=== PATIENT | female | born 1985 | race African-American/Black ===

== ENCOUNTER 2016-08-12 22:39 | Emergency (ER) | payer OTHER ==
[~2016-08-12] VITALS: Ht 167.6 cm; Wt 56.7 kg
[~2016-08-12 22:39] MED LIST: COUMADIN 5 MG TA5 M1 PO; ENOXAPARIN30 MG/0.1 SUBQ; NOHOMEMEDICATIONS; THERAFLU COL245.5 ML; ZPAK PO
[2016-08-12] MEDS ORDERED: DILAUDID 2 MG TA2 MG PO (23:00)
[2016-08-12] MEDS ORDERED: LYRICA 50 MG50 MG PO (23:00)
[2016-08-12] MEDS ORDERED: MS CONTIN15 MG PO (23:00)
[2016-08-12] MEDS ORDERED: DEXAMETHASONE4 MG PO (23:01)
== END 2016-08-12 23:48 | disposition home or self-care (01) ==
LOC: ER 22:39
DX: S82.001A Unspecified fracture of right patella, initial encounter for closed fracture (principal); F10.99 Alcohol use, unspecified with unspecified alcohol-induced disorder; Z85.831 Personal history of malignant neoplasm of soft tissue; W19.XXXA Unspecified fall, initial encounter; Y93.01 Activity, walking, marching and hiking; Y92.89 Other specified places as the place of occurrence of the external cause; Y99.8 Other external cause status